=== PATIENT | male | born 2000 | race Caucasian/White ===

== ENCOUNTER 2018-09-03 13:34 | Emergency (ER) | payer SELFPAY ==
--- NOTE | 2018-09-03 15:16 | ER Document Report ---
HPI - HPI Time Seen by Provider: 09/03/18 15:08 Pain Level: 2 Notes: Patient is a 18-year-old male no significant past medical history who presents complaining of tick bite to his right lateral scapular area about 6 days ago. Patient states that he did pull the tick out at that time and is not sure exactly what kind it was. Patient states that he started having (subjective) fever yesterday which is since resolved, but someone pointed out a rash to him and that area which prompted him to come get evaluated. Denies drug allergies. No other concerns or complaints. He is able to eat and drink without difficulty. He is urinating normally and having normal bowel movements. Denies any headache, fever, neck pain, changes in vision/speech/mentation/hearing, URI, sore throat, chest pain, palpitations, syncope, cough, shortness of breath, wheeze, dyspnea, abdominal pain, nausea/vomiting/diarrhea, urinary retention, dysuria, hematuria, loss of control of bowel or bladder, numbness/tingling, muscle paralysis/weakness. - ROS Systems Reviewed and Negative: Yes All other systems reviewed and negative Past Medical History - Social History Smoking Status: Never Smoker Family History: Reviewed & Not Pertinent Vertical Provider Document - CONSTITUTIONAL Agree With Documented VS: Yes Notes: PHYSICAL EXAMINATION: GENERAL: Well-appearing, well-nourished and in no acute distress. HEAD: Atraumatic, normocephalic. EYES: Pupils equal round and reactive to light, extraocular movements intact, sclera anicteric, conjunctiva are normal. ENT: Nares patent and without discharge. oropharynx clear without exudates. No tonsilar hypertrophy or erythema. Moist mucous membranes. NECK: Normal range of motion, supple without lymphadenopathy LUNGS: Breath sounds clear to auscultation bilaterally and equal. No wheezes rales or rhonchi. HEART: Regular rate and rhythm without murmurs, rubs, gallops. Musculoskeletal: FROM to passive/active. Strength 5+/5. Extremities: No cyanosis, clubbing, or edema b/l. Peripheral pulses 2+. Capi llary refill less than 3 seconds. NEUROLOGICAL: Cranial nerves grossly intact. Normal speech, normal gait. Normal sensory, motor exams PSYCH: Normal mood, normal affect. SKIN: There is a macular erythemic rash with a diameter of about 3 to 4 cm noted without induration or tenderness. ? erythema migrans. No fluctuance. - INFECTION CONTROL TRAVEL OUTSIDE OF THE [place] IN LAST 30 DAYS: No Course - Re-evaluation Re-evalutation: 09/03/18 15:14 Patient is an afebrile, well-hydrated, 18-year-old male who presents with tick bite to his right scapular area with subsequent erythema and rash locally. Vitals are acceptable without significant tachycardia, tachypnea, or hypoxia. PE is otherwise unremarkable. Patient is nontoxic-appearing and is tolerating p.o. without difficulty. I will send a titer out for Lyme as well as [place] spotted fever. No incision and drainage is warranted. Low suspicion for any necrotizing fasciitis, SJS, SSS, drug reaction, sepsis, meningitis, syphilis, or other systemic emergent condition at this time. Patient aware that condition can change from initial presentation and he needs to monitor symptoms closely and seek medical attention with any acute changes. I will send him home with prescription for doxycycline. Sunlight precautions reviewed. Recheck with your PCM in 3-5 days. Consider consult with dermatology. Return to the ED with any other worsening/concerning symptoms as reviewed. Patient is in agreement. - Vital Signs Vital signs: Temp Pulse Resp BP Pulse Ox 97.9 F 71 16 165/78 H 99 09/03/18 13:53 09/03/18 13:53 09/03/18 13:53 09/03/18 13:53 09/03/18 13:53 Discharge - Discharge Clinical Impression: Tick bite Qualifiers: Encounter type: initial encounter Qualified Code(s): W57.XXXA - Bitten or stung by nonvenomous insect and other nonvenomous arthropods, initial encounter Condition: Stable Disposition: HOME, SELF-CARE Additional Instructions: Keep the skin clean Wash with soap and water Tylenol/ibuprofen if needed Triple antibiotic ointment daily Take medication as directed Monitor for any worsening symptoms Recheck with your PCM in 3-5 days Consider consult with dermatology for ongoing/worsening symptoms Return to the ED with any worsening symptoms and/or development of fever, headache, chest pain, palpitations, syncope, shortness of breath, trouble breathing, abdominal pain, n/v/d, abscess, purulent discharge, red streaks, worsening swelling, or other worsening symptoms that are concerning to you. Prescriptions: Doxycycline Hyclate 100 mg PO BID #28 capsule Forms: Elevated Blood Pressure Referrals: RANDALL JOHNSTON DO [ACTIVE STAFF] - Follow up as needed
[2018-09-03 15:33] VITALS: BP 150/73
[2018-09-05 14:51] LABS: LYME DISEASE IGM AB <0.80 index (0.00-0.79)
== END 2018-09-03 15:31 | disposition home or self-care (01) ==
LOC: ER 13:34
DX: S40.261A Insect bite (nonvenomous) of right shoulder, initial encounter (principal); W57.XXXA Bitten or stung by nonvenomous insect and other nonvenomous arthropods, initial encounter; R21 Rash and other nonspecific skin eruption
CPT/HCPCS: 36415; 86617; 86618; 86757; 99282